=== PATIENT | male | born 1945 | race Caucasian/White ===

== ENCOUNTER 2024-02-06 15:15 | Outpatient (CLI) | payer MEDICARE, OTHER ==
[2024-02-06 15:40] LABS: CALCIUM 9.6 mg/dL (8.5-10.3); CREATININE 1.3 mg/dL (0.6-1.3); POTASSIUM 4.3 mmol/L (3.5-4.5)
== END 2024-02-06 15:16 | disposition home or self-care (01) ==
LOC: LAB 15:15
PROVIDERS: ATTEND Student in an Organized Health Care Education/Training Program
DX: E11.22 Type 2 diabetes mellitus with diabetic chronic kidney disease (principal); N18.30 Chronic kidney disease, stage 3 unspecified
CPT/HCPCS: 36415; 80048

== ENCOUNTER 2024-04-22 08:17 | Emergency (ER) | payer MEDICARE, OTHER ==
[2024-04-22 09:03] LABS: RAPID STREP SCREEN Negative (Negative)
--- NOTE | 2024-04-22 09:11 | XRAY Report ---
PROCEDURE: Chest 2V INDICATIONS: cough TECHNIQUE: 2 views of the chest were acquired. COMPARISON: None. FINDINGS: Surgical changes and devices: None. Lungs and pleura: No pleural effusions or pneumothorax. Lungs are clear. Peribronchial cuffing. Mediastinum: And dilated pulmonary arteries. Heart size is normal. Bones and chest wall: No suspicious bony lesions. Overlying soft tissues appear unremarkable. IMPRESSION: Peribronchial cuffing, suggestive of infectious or inflammatory bronchitis. Dilated pulmonary arteries, suggestive of pulmonary hypertension. Reviewed by: Simone Us MD on 04/22/2024 9:10 AM PDT Approved by: Simone Us MD on 04/22/2024 9:10 AM PDT Station ID: [id number]
[2024-04-22 09:41] LABS: B. PARAPERTUSSIS- RESP PCR PAN NOT DETECTED; B. PERTUSSIS- RESP PCR PANEL NOT DETECTED; C. PNEUMONIAE- RESP PCR PANEL NOT DETECTED; CORONAVIRUS 229E-RESP PCR NOT DETECTED; CORONAVIRUS HKU1-RESP PCR NOT DETECTED; CORONAVIRUS NL63-RESP PCR NOT DETECTED; CORONAVIRUS OC43-RESP PCR NOT DETECTED; HUMAN METAPNEUMOVIRUS NOT DETECTED; INFLUENZA A- RESP PCR PANEL NOT DETECTED; INFLUENZA B - RESP PCR PANEL NOT DETECTED; M. PNEUMONIAE- RESP PCR PANEL NOT DETECTED; PARAINFLUENZA VIRUS 1 NOT DETECTED; PARAINFLUENZA VIRUS 2 NOT DETECTED; PARAINFLUENZA VIRUS 3 NOT DETECTED; PARAINFLUENZA VIRUS 4 NOT DETECTED; RHINOVIRUS/ENTEROVIRUS NOT DETECTED; RSV- RESP PCR PANEL NOT DETECTED
[2024-04-22 09:51] LABS: SARS-CoV-2 -RESP PCR PANEL DETECTED
--- NOTE | 2024-04-22 12:43 | ED Physician Documentation ---
PD HPI URI - Stated complaint Stated Complaint: SOA,HURTS TO SWALLOW - Chief complaint Chief Complaint: Heent - History obtained from History obtained from: Patient - History of Present Illness Timing - onset: How many days ago Timing duration: Days Timing details: Gradual onset, Still present Associated symptoms: Chills, Nasal congestion, Sore throat, Productive cough. No: Hemoptysis, Chest pain Contributing factors: No: Sick contact Similar symptoms before: Has not had sx before Review of Systems Constitutional: reports: Chills, Myalgias Nose: reports: Congestion Cardiac: reports: Chest pain / pressure. denies: Palpitations, Pedal edema, Calf pain Respiratory: reports: Dyspnea, Cough, Wheezing GI: reports: Nausea PD PAST MEDICAL HISTORY - Past Medical History Past Medical History: Yes Cardiovascular: Coronary artery disease Respiratory: Sleep apnea, CPAP use Endocrine/Autoimmune: Type 2 diabetes GI: None : Kidney stones Psych: None Musculoskeletal: None Derm: None - Past Surgical History Past Surgical History: No Cardiovascular: Coronary stent, Cardiac catheterization - Present Medications Home Medications: Ambulatory Orders Medication Instructions Recorded Confirmed Albuterol Sulf [Ventolin Hfa 2 - 3 puffs INH Q4HR PRN #1 each 04/22/24 Inhaler] Amoxicillin 500 mg PO TID #15 cap 04/22/24 dexAMETHasone [Decadron] 4 mg PO DAILY #5 tablet 04/22/24 - Allergies Allergies/Adverse Reactions: Allergies Allergy/AdvReac Type Severity Reaction Status Date / Time No Known Drug Allergies Allergy Verified 04/22/24 08:37 - Social History Does the pt smoke?: No Smoking Status: Never smoker Does the pt drink ETOH?: No Does the pt have substance abuse?: No - Immunizations Immunizations are current?: Yes - POLST Patient has POLST: No PD ED PE NORMAL - Vitals Vital signs reviewed: Yes - General General: Alert and oriented X 3, No acute distress, Well developed/nourished - Neck Neck: Supple, no meningeal sign, No adenopathy - Cardiac Cardiac: RRR, No murmur - Respiratory Respiratory: Clear bilaterally - Abdomen Abdomen: Normal bowel sounds, Soft, Non tender - Derm Derm: Normal color, Warm and dry - Extremities Extremities: No deformity, No edema, No calf tenderness / cord - Neuro Neuro: Alert and oriented X 3, No motor deficit, Normal speech Results - Vitals Vitals: Oxygen O2 Source Room air - Labs Labs: Microbiology 04/22/24 08:50 Group A Strep Throat Culture - Preliminary Throat Laboratory Tests 04/22/24 04/22/24 08:50 08:50 Nasal Adenovirus (PCR) NOT DETECTED Nasal B. parapertussis DNA (PCR) NOT DETECTED Nasal Coronavir 229E PCR NOT DETECTED Nasal Coronavir HKU1 PCR NOT DETECTED Nasal Coronavir NL63 PCR NOT DETECTED Nasal Coronavir OC43 PCR NOT DETECTED Nasal Enterovir/Rhinovir PCR NOT DETECTED Nasal Influenza B PCR NOT DETECTED Nasal Influenza A PCR NOT DETECTED Nasal Parainfluen 1 PCR NOT DETECTED Nasal Parainfluen 2 PCR NOT DETECTED Nasal Parainfluen 3 PCR NOT DETECTED Nasal Parainfluen 4 PCR NOT DETECTED Nasal RSV (PCR) NOT DETECTED Nasal B.pertussis DNA PCR NOT DETECTED Nasal C.pneumoniae (PCR) NOT DETECTED Baron Human Metapneumo PCR NOT DETECTED Nasal M.pneumoniae (PCR) NOT DETECTED Nasal SARS-CoV-2 (PCR) DETECTED A Group A Strep Rapid Negative - Rads (name of study) chest xray Relevant Findings:: Prelim report reviewed, EMP independent interpretation of test (no infiltrate. Bronchiole wall thickening c/w bronchtiis. However he has had illness for days and getting worse with purulent sputum and worse cough. k) PD Medical Decision Making - ED course Complexity details: reviewed results (positive for COVID. Negative strep rapid. ), considered differential (has had several days of cough, dyspnea, fatigue. Noting feeling of dyspnea and wheezing. General malaise and aches.), d/w patient Departure - Departure Disposition: 01 Home, Self Care Clinical Impression: COVID-19, Bronchitis Condition: Stable Record reviewed to determine appropriate education?: Yes Follow-Up: ARISTEO BAIRD DO [Primary Care Provider] - Prescriptions: Albuterol Sulf [Ventolin Hfa Inhaler] 2 - 3 puffs INH Q4HR PRN #1 each PRN Reason: Shortness Of Air/Wheezing Amoxicillin 500 mg PO TID #15 cap dexAMETHasone [Decadron] 4 mg PO DAILY #5 tablet Comments: Your chest x-ray does not show any obvious localized pneumonia. There is some thickening of the bronchial airways. Your respiratory viral panel was tested and positive for COVID. Most likely your cough and trouble breathing are related to the COVID bronchitis. However your description would be concerning for some bacterial component as well so I would add amoxicillin antibiotic. To help with your breathing, I would go with the Decadron steroid for inflammation of the bronchioles and albuterol inhaler 2 to 3 puffs 4 times daily for the next 7 days to 10 days. Extra times if needed for wheezing. Return if increased trouble breathing, wheezing, fevers or other concerns. I sent your prescription to your preferred pharmacy. Forms: PCP List Discharge Date/Time: 04/22/24 14:09
[2024-04-22] MEDS: HYDROcod/ACETAM 5/325 MG TABLET PO STA (13:17)
[2024-04-22] MEDS: dexAMETHasone 4 MG TABLET PO STA (13:17)
[2024-04-22 13:21] VITALS: BP 126/59; O2SAT 95
[2024-04-22] MEDS: ALBUTEROL NEB 2.5 MG/3 ML INH STA (13:30)
== END 2024-04-22 14:09 | disposition home or self-care (01) ==
LOC: ED 08:17
DX: U07.1 COVID-19 (principal); J40 Bronchitis, not specified as acute or chronic
CPT/HCPCS: 71046; 87070; 87430; 87633; 94640; 99284; A9270; J8540

== ENCOUNTER 2024-05-04 14:16 | Emergency (ER) | payer MEDICARE, OTHER ==
[2024-05-04 14:55] LABS: BASOPHILS % (AUTO) 0.2 %; EOSINOPHILS % (AUTO) 0.5 %; HCT - HEMATOCRIT 39.5 % (42.0-52.0); HGB - HEMOGLOBIN 12.4 g/dL (14.0-18.0); LYMPHOCYTES # (AUTO) 0.8 10^3/uL (1.5-3.5); LYMPHOCYTES % (AUTO) 9.7 %; MEAN CORPUSCULAR HEMOGLOBIN 30.5 pg (27.0-31.0); MEAN CORPUSCULAR HGB CONC 31.4 g/dL (32.0-36.0); MEAN CORPUSCULAR VOLUME 97.1 fL (80.0-94.0); MEAN PLATELET VOLUME 10.9 fL (7.4-11.4); MONOCYTES # (AUTO) 0.8 10^3/uL (0.0-1.0); MONOCYTES % (AUTO) 9.8 %; NEUTROPHILS # (AUTO) 6.4 10^3/uL (1.5-6.6); NEUTROPHILS % (AUTO) 78.9 %; PLT - PLATELET COUNT 282 10^3/uL (130-450); RED BLOOD COUNT 4.07 10^6/uL (4.70-6.10); RED CELL DISTRIBUTION WIDTH 13.2 % (12.0-15.0); WHITE BLOOD COUNT 8.2 x10^3/uL (4.8-10.8)
[2024-05-04 15:10] LABS: ALBUMIN 3.5 g/dL (3.2-5.5); BILIRUBIN,TOTAL 0.6 mg/dL (0.2-1.0); CALCIUM 8.8 mg/dL (8.5-10.3); CREATININE 1.6 mg/dL (0.6-1.3); POTASSIUM 4.1 mmol/L (3.5-4.5)
--- NOTE | 2024-05-04 15:58 | XRAY Report ---
PROCEDURE: Chest 2V INDICATIONS: Cough TECHNIQUE: 2 views of the chest were acquired. COMPARISON: 04/22/2024. FINDINGS: Surgical changes and devices: None. Lungs and pleura: Blunting of costophrenic angle, likely representing small left pleural effusion wi th adjacent atelectasis versus consolidation. Mediastinum: Mediastinal contours appear normal. Heart size is normal. Bones and chest wall: No suspicious bony lesions. Overlying soft tissues appear unremarkable. IMPRESSION: Small left pleural effusion with adjacent atelectasis versus consolidation. Reviewed by: Guanaco Faria MD on 05/04/2024 2:57 PM LUIZ Approved by: Guanaco Faria MD on 05/04/2024 2:57 PM LUIZ Station ID: [id number]
[2024-05-04 17:37] LABS: BILIRUBIN,URINE SMALL (NEGATIVE); GLUCOSE, URINE (UA) NEGATIVE (NEGATIVE); KETONES,URINE (UA) NEGATIVE (NEGATIVE); LEUKOCYTE ESTERASE, URINE SMALL (NEGATIVE); NITRITE,URINE NEGATIVE (NEGATIVE); OCCULT BLOOD,URINE LARGE (NEGATIVE); PH,URINE 5.5 PH (5.0-7.5); PROTEIN,URINE 100 mg/dL (NEGATIVE); UROBILINOGEN,URINE 1 (NORMAL) E.U./dL (NORMAL)
[2024-05-04 17:39] LABS: CLARITY,URINE CLOUDY (CLEAR)
[2024-05-04 17:53] LABS: AMORPHOUS SEDIMENT,UR Marked /LPF; BACTERIA,URINE Moderate /HPF (None Seen); RBC,URINE TNTC /HPF (0-5); SQUAMOUS EPITHELIAL CELL,UR FEW Squamous (<= Few)
--- NOTE | 2024-05-04 18:38 | ED Physician Documentation ---
PD HPI NVD - Stated complaint Stated Complaint: D, BODY ACHES, COVID - Chief complaint Chief Complaint: Abd Pain - History obtained from History obtained from: Patient - History of Present Illness Timing - onset: How many days ago (12) Timing - duration: Days (12) Timing - details: Gradual onset, Still present, Waxing and waning Associated symptoms: Fever, Dizzy, Near syncope / syncope, Other (diarrhea) Contributing factors: Sick contact (has had covid starting before 04/22/24) Improved by: Meds Worsened by: Eating Similar symptoms before: Diagnosis (covid and bronchitis gastroenteritis) Recently seen: Clinic, Emergency Dept - Additonal information Additional information: 79-year-old Simone Leyva presents to the emergency department with diarrhea and feeling weak. He has had COVID 12 days ago he continues to have a cough productive of sputum. He was placed on amoxicillin for 5 days because of findings on his chest x-ray of some bronchial thickening. He is concerned about his cough productive of sputum that has been persistent. The color has changed from dark green to rust colored to clear then to yellow. Frantz sister indicates that Simone had a stent placed for kidney stone in January of this year and he was on some antibiotic at the time. He has developed diarrhea following that and was placed on some probiotic which apparently helped for some time. It stopped working he developed diarrhea again and this has not resolved. He indicates he is having dark stools with shaking on the outside. He does not have specifically liquid stool. He is on metformin and he has been on this for less than a year. He had some initial diarrhea with this and that then resolved. Review of Systems Constitutional: reports: Fever Eyes: denies: Decreased vision Ears: denies: Ear pain Nose: reports: Congestion. denies: Rhinorrhea / runny nose Throat: denies: Sore throat Cardiac: denies: Chest pain / pressure, Palpitations Respiratory: reports: Dyspnea, Cough GI: reports: Diarrhea. denies: Abdominal Pain, Nausea, Vomiting : denies: Dysuria, Frequency Skin: denies: Rash Musculoskeletal: denies: Neck pain, Back pain, Extremity pain Neurologic: reports: Generalized weakness. denies: Focal weakness, Numbness PD PAST MEDICAL HISTORY - Past Medical History Cardiovascular: Coronary artery disease Respiratory: Sleep apnea, CPAP use Endocrine/Autoimmune: Type 2 diabetes GI: None : Kidney stones Psych: None Musculoskeletal: None Derm: None - Past Surgical History Past Surgical History: No Cardiovascular: Coronary stent, Cardiac catheterization - Present Medications Home Medications: Ambulatory Orders Medication Instructions Recorded Confirmed Albuterol Sulf [Ventolin Hfa 2 - 3 puffs INH Q4HR PRN #1 each 04/22/24 Inhaler] Amoxicillin 500 mg PO TID #15 cap 04/22/24 dexAMETHasone [Decadron] 4 mg PO DAILY #5 tablet 04/22/24 - Allergies Allergies/Adverse Reactions: Allergies Allergy/AdvReac Type Severity Reaction Status Date / Time No Known Drug Allergies Allergy Verified 05/04/24 14:29 - Social History Does the pt smoke?: No Smoking Status: Never smoker Does the pt drink ETOH?: No Does the pt have substance abuse?: No - Immunizations Immunizations are current?: Yes - POLST Patient has POLST: No PD ED PE NORMAL - Vitals Vital signs reviewed: Yes (tachy, tachypneic and hypertensive ) - General General: Alert and oriented X 3, No acute distress, Well developed/nourished - HEENT HEENT: Atraumatic, PERRL, EOMI - Neck Neck: Supple, no meningeal sign, No bony TTP - Cardiac Cardiac: No murmur, Other (tachy to 100) - Respiratory Respiratory: Other (diminished breath sounds bilat at the bases rhonchi in the mid lung field on the left. dyspneic at rest normal sat. ) - Abdomen Abdomen: Soft, Non tender - Back Back: No CVA TTP, No spinal TTP - Derm Derm: Normal color, Warm and dry, No rash - Extremities Extremities: No deformity, No edema - Neuro Neuro: Alert and oriented X 3, No motor deficit, No sensory deficit, Normal speech Eye Opening: Spontaneous Motor: Obeys Commands Verbal: Oriented GCS Score: 15 Results - Vitals Vitals: Vital Signs - 24 hr 05/04/24 05/04/24 05/04/24 14:23 17:21 18:34 Temperature 36.5 C 36.2 C L Heart Rate 101 H 103 H 83 Respiratory 26 H 24 28 H Rate Blood Pressure 176/78 H 141/78 H 123/61 O2 Saturation 94 96 97 05/04/24 19:51 Temperature Heart Rate 96 Respiratory 34 H Rate Blood Pressure 123/61 O2 Saturation 97 Oxygen O2 Source Room air - Labs Labs: Laboratory Tests 05/04/24 05/04/24 05/04/24 14:50 14:50 17:32 WBC 8.2 RBC 4.07 L Hgb 12.4 L Hct 39.5 L MCV 97.1 H MCH 30.5 MCHC 31.4 L RDW 13.2 Plt Count 282 MPV 10.9 Neut # (Auto) 6.4 Lymph # (Auto) 0.8 L Starr # (Auto) 0.8 Eos # (Auto) 0.0 Baso # (Auto) 0.0 Absolute Nucleated RBC 0.00 Nucleated RBC % 0.0 Sodium 138 Potassium 4.1 Chloride 106 Carbon Dioxide 22 Anion Gap 10.0 BUN 25 H Creatinine 1.6 H Estimated GFR (MDRD) 42 L Glucose 146 H Calcium 8.8 Total Bilirubin 0.6 AST 24 ALT 42 Alkaline Phosphatase 59 Total Protein 7.0 Albumin 3.5 Globulin 3.5 Albumin/Globulin Ratio 1.0 Lipase 31 Urine Color BROWN Urine Clarity CLOUDY Urine pH 5.5 Ur Specific [place] 1.025 Urine Protein 100 H Urine Glucose (UA) NEGATIVE Urine Ketones NEGATIVE Urine Occult Blood LARGE H Urine Nitrite NEGATIVE Urine Bilirubin SMALL H Urine Urobilinogen 1 (NORMAL) Ur Leukocyte Esterase SMALL H Urine RBC TNTC H Urine WBC 6-10 H Ur Squamous Epith Cells FEW Squamous Amorphous Sediment Marked Urine Bacteria Moderate H Ur Microscopic Review INDICATED Urine Culture Comments INDICATED - Rads (name of study) chest Relevant Findings:: Prelim report reviewed (Impression: Small left pleural effusion with adjacent atelectasis versus consolidation.), EMP independent interpretation of test, See rad report Procedures - IVC sono (time) 1715 Bedside IVC sono: IVC measures (cm) (0.9), Dehydration (est 2 liter deficit) PD Medical Decision Making - ED course Complexity details: reviewed old records, reviewed results, re-evaluated patient, considered differential, d/w patient Reviewed Lab Results: We reviewed a complete blood count with a normal white blood cell count hemoglobin and hematocrit were low at 12.4 and 39.5 just below normal and no comparisons available here platelets normal at 282,000. Chemistries showed normal electrolytes. BUN is mildly elevated at 25 creatinine elevated at 1.6. glucose elevated at 146 liver functions are normal urinalysis shows a specific gravity 1.025. there is large occult blood small bilirubin small leukocyte Estrace too numerous to count red blood cells 6-10 white blood cells and moderate bacteria and it did make the grade for culture. My interpretation of these laboratory results without comparisons are the patient has some evidence of dehydration likely due to frequent diarrhea and urinary tract infection with blood in the urine secondary to the stent that was about to be removed this week. His chief complaint of weakness and fatigue would be symptoms of this combination. He also has persistence of symptoms of COVID with a cough productive of sputum which did not respond to 5 days of amoxicilin. ED course: Simone Leyva presents to the emergency department with weakness, persistent diarrhea, cough and shortness of breath. He has recently had COVID did not respond to the 5 days of amoxicillin with persistence of sputum. His diarrhea has been present for months and a sample has not been evaluated. He is now dehydrated and weak. He is treated with IV saline for dehydration and he is given IV rocephin for the UTI and lung findings and a course of doxycycline is indicated for the covid bronchitis and the UTI. At shift change care is turned over to Dr. Thomas with fluids and antibiotic running. A specimen has been requested but not likely to be produced in the ED. Departure - Departure Clinical Impression: Dehydration, Bronchitis Diarrhea Qualifiers: Diarrhea type: presumed infectious Qualified Code(s): R19.7 - Diarrhea, unspecified Condition: Stable Forms: PCP List
[2024-05-04] MEDS ORDERED: cefTRIAXone 1 GM VIAL ONE (19:36)
[2024-05-04] MEDS: cefTRIAXone 1 GM in SODIUM CHLORIDE 0.9% MINIBAG 100 ML IV STA (19:43)
[2024-05-04] MEDS: DOXYCYCLINE 100 MG TABLET PO STA (19:43)
[2024-05-04] MEDS: SODIUM CHLORIDE 0.9% 1,000 ML IV STA (19:44)
--- NOTE | 2024-05-04 21:43 | ED Physician Documentation ---
ED Addendum - Addendum Addendum: 05/06/24 07:13 Received sign-out/turnover of care on this patient from Dr. Ryan; please see his note for complete H+P. Patient's workup tonight evidences both UTI and possible small pneumonia on CXR. On my shift, I have ordered Levaquin and augmentin to provide coverage for both LRTI and UTI, and e-prescribed these two antibiotics to patient's pharmacy of choice. Return precautions reviewed. He is in NAD on my evaluation prior to d/c.
[2024-05-04] MEDS: levoFLOXacin 750 MG TABLET PO STA (22:17)
[2024-05-04] MEDS: AMOX/CLAV 875 MG/125 MG TABLET PO STA (22:17)
[2024-05-04 22:41] VITALS: BP 142/76; O2SAT 98
== END 2024-05-04 22:39 | disposition home or self-care (01) ==
LOC: ED 14:16
DX: E86.0 Dehydration (principal); N39.0 Urinary tract infection, site not specified; R31.9 Hematuria, unspecified; U07.1 COVID-19; J20.8 Acute bronchitis due to other specified organisms; R19.7 Diarrhea, unspecified; Z96.0 Presence of urogenital implants
CPT/HCPCS: 36415; 71046; 80053; 81001; 83690; 85025; 87086; 96365; 99284; A9270; 81003